=== PATIENT | female | born 1985 | race Caucasian/White ===

== ENCOUNTER 2018-05-17 06:30 | Emergency (ER) | payer OTHER ==
[~2018-05-17] VITALS: Ht 160 cm; Wt 61.2 kg
[~2018-05-17 06:30] MED LIST: AFRIN15 ML NS; ANTIPYRINE-BENZ10 ML OT; APRISO0.375 GM PO; AUGMENTIN 875875 MG PO; CIPRO500 MG PO; CODEINE 10 MG-473 ML PO; EC-NAPROSYN500 MG PO; FLEXERIL PO; HYDROCODONE-AP1 EAC6 PO; IBUPROFEN 800800 M1 PO; KEFLEX500 MG PO; MACROBID 100 M100 M1 PO; MEDROLDOSEPACK PO; NITROFURANTOIN100 MG; NOHOMEMEDICATIONS; NORCO 5-325 TA1 EAC1 PO; PREDNISONE 10 M10 MG PO; PREDNISONE50 MG PO; PRENATAL; PROMETRIUM100 MG; SULFASALAZINE500 M4 PO; ZOFRAN ODT4 MG PO; ZPAK PO
[2018-05-17] MEDS ORDERED: DIFLUCAN200 MG (06:45)
[2018-05-17 06:54] LABS: URINE BILIRUBIN NEGATIVE (Negative); URINE BLOOD 2+ (Negative); URINE CLARITY CLEAR; URINE COLOR YELLOW; URINE GLUCOSE-RANDOM NEGATIVE (Negative); URINE KETONES NEGATIVE (Negative); URINE LEUKOCYTES-REFLEX NEGATIVE (Negative); URINE NITRITE-REFLEX NEGATIVE (Negative); URINE PROTEIN NEGATIVE (Negative); URINE SPECIFIC GRAVITY 1.025 (1.005-1.030); URINE UROBILINOGEN 0.2 E.U./dl (0.2-1.0)
[2018-05-17 07:03] LABS: BACTERIA-REFLEX 1-9 Few /HPF (None Seen); CASTS None Seen /LPF (None Seen); CRYSTALS None Seen /LPF (None Seen); MUCUS >6 Heavy strn/LPF (None Seen); SQUAMOUS 4-10 Moderate /LPF (0-3); URINE RBC 3-10 Few /HPF (0-2); URINE WBC-REFLEX 0-5 Rare /HPF (0-5)
[2018-05-17 07:32] LABS: ABSOLUTE EOSINOPHILS 0.1 thou/uL (0.0-0.7); ABSOLUTE LYMPHOCYTES 1.3 thou/uL (0.8-5.3); ABSOLUTE MONOCYTES 0.5 thou/uL (0.0-1.2); ABSOLUTE NEUTROPHILS 5.2 thou/uL (1.6-8.1); BASOPHILS 0.6 %; EOSINOPHILS 1.2 %; HEMATOCRIT 38.1 % (37.0-47.0); HEMOGLOBIN 12.6 gm/dL (12.0-15.0); LYMPHOCYTES 18.8 %; MCHC 33.2 g/dL (28.0-37.0); MCV 81.4 fL (80.0-100.0); MONOCYTES 6.6 %; MPV 8.9 fl. (7.2-11.1); NUCLEATED RBCS 0 /100WBC; PLATELET COUNT* 169 thou/uL (150-400); POLYS 72.8 %; RBC 4.68 mil/uL (4.20-5.00); RDW-CV 13.3 % (10.5-14.5); WBC 7.1 thou/uL (4.0-11.0)
[2018-05-17 07:39] LABS: CALCIUM 8.9 mg/dL (8.5-10.1); CREATININE 0.7 mg/dL (0.6-1.3); POTASSIUM 3.9 mmol/L (3.5-5.1)
[2018-05-17 07:44] LABS: ALBUMIN 3.6 g/dL (3.4-5.0); TOTAL BILIRUBIN 0.3 mg/dL (<0.1-1.0); TOTAL PROTEIN 7.4 g/dL (6.4-8.2)
[2018-05-17] MEDS ORDERED: PREDNISONE 20 M20 M1 PO (08:28)
[2018-05-17] MEDS ORDERED: CIPROFLOXACIN500 M1 PO (08:28)
[2018-05-17 08:59] VITALS: BP 103/55
== END 2018-05-17 09:00 | disposition home or self-care (01) ==
LOC: M.ERS 06:30
PROVIDERS: Emergency Medicine; Family Medicine
DX: K52.9 Noninfective gastroenteritis and colitis, unspecified (principal); F17.210 Nicotine dependence, cigarettes, uncomplicated; Z88.8 Allergy status to other drugs, medicaments and biological substances

== ENCOUNTER 2018-05-23 01:54 | Emergency (ER) | payer OTHER ==
[~2018-05-23] VITALS: Ht 160 cm; Wt 59.0 kg
[~2018-05-23 01:54] MED LIST changes: +CIPROFLOXACIN500 M1 PO; +DIFLUCAN200 MG; +PREDNISONE 20 M20 M1 PO
[2018-05-23] MEDS ORDERED: AMOXICILLIN 50500 MG PO (02:00)
[2018-05-23] MEDS ORDERED: PREDNISONE 20 M20 MG PO (02:02)
[2018-05-23 02:17] LABS: ABSOLUTE BASOPHILS 0.1 thou/uL (0.0-0.2); ABSOLUTE LYMPHOCYTES 2.3 thou/uL (0.8-5.3); ABSOLUTE MONOCYTES 0.7 thou/uL (0.0-1.2); ABSOLUTE NEUTROPHILS 7.9 thou/uL (1.6-8.1); BASOPHILS 0.5 %; EOSINOPHILS 0.1 %; HEMOGLOBIN 12.5 gm/dL (12.0-15.0); LYMPHOCYTES 20.8 %; MCH 26.9 pg (26.0-34.0); MCV 81.6 fL (80.0-100.0); MONOCYTES 6.1 %; MPV 8.5 fl. (7.2-11.1); NUCLEATED RBCS 0 /100WBC; PLATELET COUNT* 217 thou/uL (150-400); POLYS 72.5 %; RBC 4.66 mil/uL (4.20-5.00); RDW-CV 13.7 % (10.5-14.5); WBC 10.9 thou/uL (4.0-11.0)
[2018-05-23 02:38] LABS: CALCIUM 8.9 mg/dL (8.5-10.1); CREATININE 0.8 mg/dL (0.6-1.3); POTASSIUM 3.4 mmol/L (3.5-5.1)
[2018-05-23 02:48] LABS: ALBUMIN 3.7 g/dL (3.4-5.0); TOTAL BILIRUBIN 0.1 mg/dL (<0.1-1.0); TOTAL PROTEIN 7.6 g/dL (6.4-8.2)
[2018-05-23 03:15] LABS: URINE BILIRUBIN NEGATIVE (Negative); URINE BLOOD 2+ (Negative); URINE CLARITY CLEAR; URINE COLOR YELLOW; URINE GLUCOSE-RANDOM NEGATIVE (Negative); URINE KETONES NEGATIVE (Negative); URINE LEUKOCYTES-REFLEX NEGATIVE (Negative); URINE NITRITE-REFLEX NEGATIVE (Negative); URINE PROTEIN NEGATIVE (Negative); URINE SPECIFIC GRAVITY 1.025 (1.005-1.030); URINE UROBILINOGEN 0.2 E.U./dl (0.2-1.0)
[2018-05-23 05:02] LABS: CASTS None Seen /LPF (None Seen); SQUAMOUS 0-3 Few /LPF (0-3)
[2018-05-23 05:03] LABS: BACTERIA-REFLEX 1-9 Few /HPF (None Seen); CRYSTALS None Seen /LPF (None Seen); URINE RBC 0-2 Rare /HPF (0-2); URINE WBC-REFLEX 0-5 Rare /HPF (0-5)
[2018-05-23] MEDS ORDERED: ZOFRAN4 MG PO (05:24)
[2018-05-23] MEDS ORDERED: CIPRO500 M1 PO ×2 (05:24→05:45)
[2018-05-23] MEDS ORDERED: NORCO 5-325 TA1 EACH PO ×2 (05:24→05:45)
[2018-05-23] MEDS ORDERED: PREDNISONE 10 M10 M1 PO (05:45)
[2018-05-23] MEDS ORDERED: ONDANSETRON HCL4 M2 PO (05:45)
[2018-05-23 06:02] VITALS: BP 100/59
== END 2018-05-23 06:03 | disposition home or self-care (01) ==
LOC: M.ERS 01:54
PROVIDERS: Emergency Medicine Emergency Medical Services
DX: K50.90 Crohn's disease, unspecified, without complications (principal); R11.2 Nausea with vomiting, unspecified; F17.210 Nicotine dependence, cigarettes, uncomplicated; Z88.1 Allergy status to other antibiotic agents